=== PATIENT | male | born 1955 | race Caucasian/White ===

== ENCOUNTER 2023-05-06 09:48 | Outpatient (RCR) | payer OTHER, SELFPAY | END 2023-05-06 23:59 | disposition home or self-care (01) | LOC: RPT 09:48 | PROVIDERS: ATTENDING PHYSICIAN Urology; PRIMARYCARE PHYSICIAN Nurse Practitioner Adult Health | DX: C61 Malignant neoplasm of prostate (principal); N39.3 Stress incontinence (female) (male); Z73.6 Limitation of activities due to disability; M62.81 Muscle weakness (generalized); R27.8 Other lack of coordination | CPT/HCPCS: 97162; 97530 ==

== ENCOUNTER 2023-06-20 14:15 | Inpatient (IN) | payer OTHER, SELFPAY ==
[2023-05-02 08:32] LABS: Hemoglobin 17.7 g/dL (13.0-18.0); Mean Corpuscular Volume 88.1 fL (80.0-94.0); Mean Platelet Volume 9.5 fL (7.4-10.4); Platelet Count 276 10^3/uL (130-400); Red Cell Dist. Width 16.1 % (11.5-14.5); White Blood Cell Count 8.6 10^3/uL (4.8-10.8)
[2023-05-02 08:49] LABS: INR 0.97; PT 13.1 Sec (11.4-14.6)
[2023-05-02 08:50] LABS: APTT 31.3 Sec (23.4-35.0)
[2023-05-02 08:56] VITALS: BMI 19.7
[2023-05-02 09:35] LABS: Blood Urea Nitrogen 17 mg/dl (9-20); Calcium 9.1 mg/dl (8.4-10.2); Carbon Dioxide 25 mmol/L (22-30); Chloride 100 mmol/L (98-107); Estimated Creatinine Clearance 85 ml/min; Glucose 96 mg/dl (70-99); Potassium 4.7 mmol/L (3.5-5.1); Sodium 135 mmol/L (135-145); eGFR > 60.00
[2023-06-20] VITALS (12 sets, daily range): BP systolic 91–155; BP diastolic 55–77; BMI 19.7
--- NOTE | 2023-06-20 07:30 | PTCARENOTE ---
The OR took the patient before IVF were scanned. IVF hung. Will monitor patient.
[2023-06-20] MEDS: NORMOSOL-R 1000 IV ×2 (07:45→13:42)
[2023-06-20 13:43] LABS: Hematocrit 45.3 % (39.0-52.0); Hemoglobin 15.7 g/dL (13.0-18.0)
[2023-06-20] MEDS: ANCEF 10 IV (13:54)
[2023-06-20 14:01] LABS: Blood Urea Nitrogen 20 mg/dl (9-20); Carbon Dioxide 25 mmol/L (22-30); Chloride 106 mmol/L (98-107); Estimated Creatinine Clearance 74 ml/min; Glucose 145 mg/dl (70-99); Potassium 4.6 mmol/L (3.5-5.1); Sodium 135 mmol/L (135-145); eGFR > 60.00
--- NOTE | 2023-06-20 14:31 | PTCARENOTE ---
Pt arrived to 2S in bed. Full assessment completed. IVF infusing per order. Abdominal lap sites C/D/I, dermabonded and NAYELI. Cleaning catheter clean and intact draining blood tinged urine. Pt verbalized understanding of bedrest until 1800 and to call
for assistance. Bed locked and in the lowest position, safety maintained.
[2023-06-20] MEDS: TORADOL 15 MG IV ×2 (17:25→23:58)
[2023-06-20] MEDS: LOVENOX 40 MG SC (17:25)
[2023-06-20] MEDS: AFRIN NASAL SPRAY 1 SPRAYS NASAL (19:43)
[2023-06-20] MEDS: SENOKOT 8.59999999999999964 MG PO (19:43)
[2023-06-20] MEDS: SYMBICORT 80/4.5 MCG INHALER 2 PUFF INH (20:55)
[2023-06-20] MEDS: FLUSH (NSS) 2 FLUSH IV (23:59)
[2023-06-21 03:00] VITALS: BP 107/60
[2023-06-21] MEDS: PERCOCET 5/325 1 TABLET PO (03:59)
[2023-06-21] MEDS: DUONEB 3 ML INH ×3 (04:30→19:58)
[2023-06-21] MEDS: FLUSH (NSS) 2 FLUSH IV ×2 (04:56→05:40)
[2023-06-21] MEDS: MORPHINE SULFATE 4 MG IV ×2 (04:56→08:22)
[2023-06-21] MEDS: DILAUDID 0.5 MG IV (05:39)
[2023-06-21] MEDS: MYLICON 80 MG PO (05:39)
[2023-06-21 06:22] LABS: Hematocrit 38.1 % (39.0-52.0); Hemoglobin 13.4 g/dL (13.0-18.0); Mean Corp Hgb Conc. 35.2 g/dL (33.0-37.0); Mean Corpuscular Hgb 31.4 pg (27.0-31.0); Mean Corpuscular Volume 89.2 fL (80.0-94.0); Mean Platelet Volume 9.6 fL (7.4-10.4); Platelet Count 201 10^3/uL (130-400); Red Blood Cell Count 4.27 10^6/uL (4.70-6.10); Red Cell Dist. Width 15.9 % (11.5-14.5); White Blood Cell Count 15.7 10^3/uL (4.8-10.8)
[2023-06-21] MEDS: TORADOL IV (06:33)
--- NOTE | 2023-06-21 06:42 | PTCARENOTE ---
Starting around 0340 pt. called stating he was having trouble taking deep breaths d/t abd pain and felt SOB with o2 sat ~90% on 4L NC, as well as feeling the need to cough but unable to d/t pain. PO Percocet tried and [place] [employer]PERVISOR [employer] contacted for a
breathing tx as pt. did sound coarse upon auscultation at time of event. Following breathing tx and pain biomedical repair technician around 5 pt. had escalating pain d/t coughing, still felt SOB, and using accessory muscles/grunting in an attempt to take deep
breaths. IV Morphine tried @0456 with some reduction in pain but states increasingly worsening SOB. [place] [employer]PER[employer] contacted, stat Dilaudid and simethicone ordered. Checked in with pt. @0620 and stated he felt comfortable enough to try to sleep, breathing
even and nonlabored breathing on RA, sat 94%. At time of writing pt. is sleeping comfortably. Will continue to monitor.
[2023-06-21 07:00] LABS: Blood Urea Nitrogen 21 mg/dl (9-20); Calcium 8.1 mg/dl (8.4-10.2); Carbon Dioxide 23 mmol/L (22-30); Chloride 104 mmol/L (98-107); Estimated Creatinine Clearance 99 ml/min; Glucose 101 mg/dl (70-99); Potassium 3.3 mmol/L (3.5-5.1); Sodium 136 mmol/L (135-145); eGFR > 60.00
[2023-06-21] MEDS: SYMBICORT 80/4.5 MCG INHALER 2 PUFF INH ×2 (07:28→19:53)
[2023-06-21] MEDS: SPIRIVA RESPIMAT 2.5 MCG 2 PUFF INH (07:29)
[2023-06-21 07:40] VITALS: BP 97/57
[2023-06-21] MEDS: KCL 20 MEQ PO (08:14)
[2023-06-21] MEDS: LIPITOR 10 MG PO (08:15)
[2023-06-21] MEDS: DESYREL 50 MG PO (08:15)
[2023-06-21] MEDS: TORADOL 15 MG IV ×2 (08:15→15:50)
[2023-06-21] MEDS: AFRIN NASAL SPRAY 1 SPRAYS NASAL ×2 (08:18→20:49)
[2023-06-21] MEDS: SENOKOT 8.59999999999999964 MG PO ×2 (08:18→20:49)
--- NOTE | 2023-06-21 08:43 | W.PN.URO.CBU ---
Today's Communication / Plan
-
Pain control
Trend O2 sats
out of bed
IS
Assessment / Plan
-
67M s/p radical prostatectomy for prostate cancer
- Increase pain control regimen
- Continue O2 as needed - significant COPD at baseline
- Incentive spirometry
- Out of bed to chair, ambulate
- Will continue IVF 2 bags today until taking better PO
- Replaced potassium
- Discharge likely tomorrow
Diagnosis
-
Date of Service: June 21, 2023
-
Patient Diagnosis:Prostate cancer
Post Op Day: 1 s/p radical prostatectomy
Subjective
-
Significant abdominal pain overnight
Breathing somewhat limited by pain on inhale
No appetite this AM
Objective
-
Vital Signs
Temp Pulse Resp BP Pulse Ox
98.4 F 92 16 97/57 89
06/21/23 07:40 06/21/23 07:40 06/21/23 07:40 06/21/23 07:40 06/21/23 07:40
Intake and Output
06/20/23 06/21/23 06/22/23
06:59 06:59 06:59
Intake Total 947 / 947
Output Total 1330 / 1330
Balance -383 / -383
Intake:
Oral fluids 500 / 500
IV fluids (Total) 447 / 447
Norm 75 / 75
Normosol-R 1,000 ml @ 125 mls/ 72 / 72
hr IV .Q8H MADELEINE Rx#:[id number]
Output:
Urine, Cleaning 1330 / 1330
Laboratory Results
06/21/23 05:33
06/21/23 05:33
Physical Exam
-
General - well developed, well nourished, moderate pain
Chest - clear bilaterally
Abdomen - soft, appropriately tender, no guarding
Cleaning in place, clear urine
Skin - warm & dry with no rash
Neuro - AOx3, no motor deficits
Extremities - no clubbing, no cyanosis, no edema
Incision - clean, dry
Dressing - clean, dry, intact
[2023-06-21] MEDS: NSS 1000 IV ×2 (10:39→18:00)
[2023-06-21 11:10] VITALS: BP 132/71
--- NOTE | 2023-06-21 11:47 | CM ---
Patient seen bedside with , initial assessment completed. Patient reports he resides with his in a multiple story home. Patient denies DME and ambulates independently, report he does have a walker in the attic. reports they have a
hospital bed on the first floor, denies VN or SNF. Patient confirms PCP Dr. Alicia Stewart, pharmacy [facility]. Patient agreeable to [facility] referral for yates services. CM spoke with Denisse from [facility], aware of referral. CM will continue to follow
for discharge planning needs.
Plan; home with [facility] pending acceptance.
[2023-06-21 15:19] VITALS: BP 123/61
[2023-06-21] MEDS: PERCOCET 5/325 2 TABLET PO (15:51)
[2023-06-21] MEDS: LOVENOX 40 MG SC (15:52)
--- NOTE | 2023-06-21 15:53 | VNURNOTE ---
Home Health Liaison met with patient at 1530 to discuss [facility] nurse visits, schedule and homebound status. Patient is agreeable and understands that visits at home will be 2-3 x per week to assess and teach medical management and catheter care.
[facility] brochure provided with contact information. Patient is aware that [facility] will contact him for start of care in 1-2 days after discharge from .
[facility] referral completed in [facility].
[2023-06-21 23:40] VITALS: BP 120/65
[2023-06-22] MEDS: TORADOL 15 MG IV (00:06)
[2023-06-22] MEDS: PERCOCET 5/325 2 TABLET PO ×2 (05:14→09:34)
--- NOTE | 2023-06-22 05:30 | PTCARENOTE ---
Pt awake at this time, anxious reporting that he is having the same difficulty he has had the last 24hrs not able to take a deep breath and pain in is middle lung area. Pt given supplemental O@ via nasal canula but refuse to put in his nose and
places in his mouth. Pt on 4L O2 @ 98% HR 83. Pt provided PRN pain medication. Pt had same difficulty previous morning and had relief with pain medication and ambulating. Pt reports he has not has a BM in 2 days and feels he may go later today. Pt
in bed at this time with call julian with in reach
--- NOTE | 2023-06-22 06:16 | PTCARENOTE ---
Pt reports pain is 2/10 at this time VSS O2 left for for comfort encourage IS @ bedside
[2023-06-22 06:52] LABS: Hematocrit 34.6 % (39.0-52.0); Hemoglobin 12.3 g/dL (13.0-18.0); Mean Corp Hgb Conc. 35.5 g/dL (33.0-37.0); Mean Corpuscular Hgb 31.1 pg (27.0-31.0); Mean Corpuscular Volume 87.4 fL (80.0-94.0); Mean Platelet Volume 9.5 fL (7.4-10.4); Platelet Count 169 10^3/uL (130-400); Red Blood Cell Count 3.96 10^6/uL (4.70-6.10); Red Cell Dist. Width 15.7 % (11.5-14.5); White Blood Cell Count 11.6 10^3/uL (4.8-10.8)
[2023-06-22 07:24] LABS: Blood Urea Nitrogen 12 mg/dl (9-20); Calcium 8.1 mg/dl (8.4-10.2); Carbon Dioxide 23 mmol/L (22-30); Chloride 106 mmol/L (98-107); Estimated Creatinine Clearance 99 ml/min; Glucose 113 mg/dl (70-99); Potassium 3.9 mmol/L (3.5-5.1); Sodium 134 mmol/L (135-145); eGFR > 60.00
--- NOTE | 2023-06-22 08:16 | W.PN.URO.CBU ---
Today's Communication / Plan
-
check imaging
pulm consult
Assessment / Plan
-
67M s/p radical prostatectomy for prostate cancer
post op abd pain and SOB- intermittent
pt's abd exam is generally benign
yates functional- good UO and stable cr level
labs all ok
has been on lovenox since OR
sub crepitus not necessarily unexpected given thin pt and robotic surgery-insuflation
to check ct/cxr
pulm consult
follow closely
Diagnosis
-
Date of Service: June 22, 2023
-
Patient Diagnosis:Prostate cancer
Post Op Day: 2 s/p radical prostatectomy
Subjective
-
pt has continued to have intermittent bouts of severe upper abd pain that cuase sig SOB
after admin of percocet and pain resolution- feels fine
no continuous abd pain/sob or CP
reports + flatus
good UO/cr normal/cath functional
wbc and hgb stable
Objective
-
Vital Signs
Temp Pulse Resp BP Pulse Ox
98.2 F 93 20 120/65 93
06/21/23 23:40 06/21/23 23:40 06/21/23 23:40 06/21/23 23:40 06/21/23 23:40
Intake and Output
06/21/23 06/22/23 06/23/23
06:59 06:59 06:59
Intake Total 947 / 947 1720 / 1720
Output Total 1330 / 1330 2325 / 2325
Balance -383 / -383 -605 / -605
Intake:
Oral fluids 500 / 500 720 / 720
IV fluids (Total) 447 / 447 1000 / 1000
Norm 75 / 75
Normosol-R 1,000 ml @ 125 mls/
hr IV .Q8H MADELEINE Rx#:[id number]
Output:
Urine, Yates 1330 / 1330 2325 / 2325
Laboratory Results
06/22/23 06:39
06/22/23 06:39
Review of Systems
-
Constitutional: Fatigue
Respiratory: Trouble Breathing
Cardiac: No Symptoms
Abdomen/GI: Abdominal Pain
: No Symptoms
Physical Exam
-
General - mild discomfort
Abdomen - soft, + sub q crepitus but no rebound or gaurding or sig tenderness
Genitalia - normal- yates in place
Skin - warm & dry with no rash
Neuro - AOx3, no motor deficits
Extremities - no clubbing, no cyanosis, no edema- no cords or homans sign
Incision - clean, dry
[2023-06-22 08:20] VITALS: BP 117/67
[2023-06-22] MEDS: SPIRIVA RESPIMAT 2.5 MCG 2 PUFF INH (09:05)
[2023-06-22] MEDS: SYMBICORT 80/4.5 MCG INHALER 2 PUFF INH ×2 (09:05→20:09)
[2023-06-22] MEDS: LIPITOR 10 MG PO (09:28)
[2023-06-22] MEDS: AFRIN NASAL SPRAY 1 SPRAYS NASAL ×2 (09:28→20:53)
[2023-06-22] MEDS: SENOKOT 8.59999999999999964 MG PO ×2 (09:28→20:52)
[2023-06-22] MEDS: DESYREL 50 MG PO (09:28)
--- NOTE | 2023-06-22 10:32 | W.PN.UPDATE ---
Update Note
Progress Note Update
re-examined pt and at bedside
reviewed imaging- ct/cxr- sub air and intra-peritoneal air- espc under diaphrams- at this juncture expected/ mild ileus/ some expected pelvic hematoma/ no evid of bowel injury or urine leak/ mild consolidation of lung bases
plan
UOOB/incent spir
back diet down to clears
naprosyn
nicotine patch
await pulm input
[2023-06-22] MEDS: NICODERM TRANSDERMAL 21 MG TRANSDERM (12:12)
[2023-06-22] MEDS: NAPROSYN 500 MG PO ×2 (12:13→20:52)
--- NOTE | 2023-06-22 13:11 | CON.PUL ---
Consultation
Consultation Request
Date/Time Consultation Requested: 06/22/2023 - 0816
Date/Time Consultation Performed: 06/22/2023 - 1302
Requesting Provider: Dr. Mims
Performing Provider: Dr. Carter
Reason for Consultation: SOB
Medical History
-
Chief Complaint: Elective prostatectomy
History of Present Illness:
67-year-old male active tobacco smoker with a past med history of prostate adenocarcinoma who follows with urology who is here for prostatectomy. Patient has significant erectile dysfunction. He was counseled on surgery versus radiation treatment
options however he has decided to proceed with surgical treatment. He underwent radical prostatectomy on 06/20/2023. Since his operation he has been having increased shortness of breath with worsening hypoxia. He is now saturating 92-93% on room
air. CXR obtained showing postprocedural subdiaphragmatic air with subcutaneous emphysema. There are also hazy opacities with subsegmental atelectasis in the medial lower lobes. Due to his hypoxia, pulmonary service now consulted for additional
recommendations.
Of note, patient follows with Dr. Rollins in our office with last visit on 06/13/2023. He was noted to have worsening shortness of breath at that time suspected to have starting of an acute exacerbation of COPD. He was prescribed a course of
prednisone x 5 days and given a trelegy 200mcg sample, and told that if symptoms do not improve to start the prednisone. He does continue to smoke and has not tried nicotine patches. There was talks of starting Chantix. Last spirometry from November
2022 showed an FEV1/FVC of 48 with an FEV1 of 67% predicted, FVC 104% predicted. There was no bronchodilator response.
When I saw the pt he felt better today - at bedside. HE said that he filled the prednisone Rx that he was given by Dr. Rollins last office visit. He is using his IS. It is helping and so is the flutter valve get hsi phlegm out. He denies CP,
[place], f/c.
PMHx: Tobacco use, COPD, pulmonary nodule (6mm in RML - stable since 10/2022), hyperlipidemia, history of high-grade prostate intraepithelial neoplasia, prostate adenocarcinoma stage II
PSHx: Mohs x 2, prostate biopsy
Past Medical History
Past Medical History: Other (Above as per HPI)
Past Surgical History: Other (Above as per HPI)
Social History
Tobacco: Smoker (Current everyday smoker, 1.5 PPD since age 18, now down to 1 PPD)
Alcohol: None
Drug: None
Family History
Family History: CAD (Father: [place]), Cancer (Father: Colon cancer) and Hypertension (Mother)
Allergies / Home Medications
Allergies
Allergy/AdvReac Type Severity Reaction Status Date / Time
No Known Allergies Allergy Verified 06/20/23 07:03
Home Medications
Medication Instructions Recorded Confirmed Last Taken Type
atorvastatin 10 mg tablet 10 mg PO DAILY 06/17/23 06/20/23 06/19/23 04:00 History
cholecalciferol (vitamin D3) 125 125 mcg PO DAILY 06/17/23 06/20/23 06/19/23 04:00 History
mcg (5,000 unit) tablet (Vitamin
D3)
fluticasone fur. 100 mcg-umeclid 1 inh inhalation DAILY 06/17/23 06/20/23 06/19/23 20:00 History
62.5 mcg-vilant 25 mcg
inhalat.powder (Trelegy Ellipta)
multivit,Ca,min-iron 8 mg-folic 1 tab PO DAILY 06/17/23 06/20/23 06/18/23 History
acid 200 mcg-lycopene 600 mcg
tablet (Centrum Men)
oxymetazoline 0.05 % nasal spray 1 spray intranasal ONCE 06/17/23 06/20/23 06/19/23 20:00 History
(Afrin Sinus (oxymetazoline))
protein supplement 1 ea PO DAILY 06/17/23 06/20/23 06/18/23 History
trazodone 50 mg tablet 50 mg PO DAILY 06/17/23 06/20/23 06/18/23 History
prednisone 50 mg tablet 50 mg PO DAILY 06/20/23 06/20/23 06/19/23 08:00 History
oxycodone-acetaminophen 5 mg-325 2 tab PO Q4HPRN PRN severe pain 06/21/23 Unknown Rx
mg tablet #40 tabs
Review of Systems
-
History Source: Patient
All other systems: Negative unless noted (12 point ROS performed and is negative unless mentioned above.)
Vitals / Labs / Diagnostic Testing
Vital Signs
Temp Pulse Resp BP Pulse Ox
98.4 F 90 22 117/67 92
06/22/23 08:20 06/22/23 09:09 06/22/23 09:09 06/22/23 08:20 06/22/23 09:09
Lab Data
06/22/23 06:39
06/22/23 06:39
Diagnostic Testing:
Physical Exam
-
HEENT: Normocephalic and Anicteric
Cardiovascular: S1/S2 and Peripheral Edema (negative)
Respiratory: Wheeze (R>L in midlung field), Rales (bibasilar (L>R) improved with multiple deep breaths), Rhonchi (bibasilar (L>R)) and Non-Labored Respirations
GI: Soft and Non Distended
Neurology: Awake and Alert
Skin: Warm and Dry
General: Comfortable
Assessment
-
Assessment: 67-year-old male with a past med history of prostate adenocarcinoma who follows with urology who is here for prostatectomy. Patient has significant erectile dysfunction. He was counseled on surgery versus radiation treatment options
however he has decided to proceed with surgical treatment. He underwent radical prostatectomy on 06/20/2023. Since his operation he has been having increased shortness of breath with worsening hypoxia. He is now saturating 92-93% on room air. CXR
obtained showing postprocedural subdiaphragmatic air with subcutaneous emphysema. There are also hazy opacities with subsegmental atelectasis in the medial lower lobes. Due to his hypoxia, pulmonary service now consulted for additional
recommendations.
Chronic medical conditions STORY EDITOR: Tobacco use, COPD, hyperlipidemia, history of high-grade prostate intraepithelial neoplasia, prostate adenocarcinoma stage II
Impression:
#Acute hypoxemic respiratory failure -suspect component of hypoventilation with associated bibasilar atelectasis
#History of prostate cancer s/p radical prostatectomy -POD #2
#History of COPD (moderate severity) with centrilobular/paraseptal emphysema on trelegy with mild acute exacerbation
#Pulmonary nodule - 6mm, stable since 10/2022 - it is within the oblique fissure, hence this is likely an intra-fissural lymph node and likely benign
Plan:
- Encourage up OOB as tolerated and encourage incentive spirometer
- He is currently feeling well, but is more SOB than at baseline. Feel he is having an acute COPD exacerbation. It is difficult to decide to Tx with steroids as he will have reduced wound healing given his recent prostatectomy. Will continue
current treatment wityh Symbicort + spiriva, I will add BID Duonebs, and on day of discharge he should be DC'd on steroid taper, starting at 50mg daily x 2 days, and reduce by 10mg every 3rd day until off. And I will arrange for outpatient office
appt.
- Goal SpO2 >88%
- Continue spiriva and symbicort with prn albuterol
- Pain control
- DVT ppx
I will assure pt has outpatient follow up with Dr. Rollins
Pulmonary service will continue to follow along.
(Patient seen and evaluated n 06/22/2023).
Data:
CXR 06-22-2023: Bibasilar opacity; atelectasis versus pneumonia. Trace pleural effusion. No evidence of congestive heart failure. Postprocedural subdiaphragmatic air and subcutaneous emphysema
Outpatient [facility] data:
PFT:
������ COMMENTS:�Spirometry 06/13/23: FEV1 1.76L 59%, FVC 3.39L 85%, ratio 0.51, post FEV1 1.62L 54%, no BD response (moderate obstruction, worse than prior study)
��������Spirometry 12/05/22: FEV1 1.98L 67%, FVC 4.10L 104%, ratio 0.48. Post FEV1 1.72L 58% no BD response (moderate obstruction)
��������PFT 07/12/14: post FEV1 2.15L 60%, FVC 100%, TLC 136%, DLCO 65%.�
CARDIAC STUDIES:
������ COMMENTS:�ECHO 05/28/23: Normal biventricular size and systolic function without regional wall motion abnormality. No significant valvular disease. No significant change since the prior study of 08/01/2021..�
6 MWT:
������ COMMENTS:�6MWT 06/13/23: Total distance ambulated 1050 ft. O2 baseline 99% on room air.� Baseline HR 101. O2 jacobo 95% on room air.� No O2 was needed to maintain saturations >90%.� Dyspnea score 2/10. Max HR 114..�
[2023-06-22 15:35] VITALS: BP 120/63
[2023-06-22] MEDS: DUONEB 3 ML INH (20:09)
[2023-06-22 23:35] VITALS: BP 129/65
[2023-06-23 05:58] LABS: Hematocrit 35.4 % (39.0-52.0); Hemoglobin 12.3 g/dL (13.0-18.0); Mean Corp Hgb Conc. 34.7 g/dL (33.0-37.0); Mean Corpuscular Hgb 30.4 pg (27.0-31.0); Mean Corpuscular Volume 87.4 fL (80.0-94.0); Mean Platelet Volume 9.4 fL (7.4-10.4); Platelet Count 185 10^3/uL (130-400); Red Blood Cell Count 4.05 10^6/uL (4.70-6.10); Red Cell Dist. Width 15.6 % (11.5-14.5); White Blood Cell Count 9.2 10^3/uL (4.8-10.8)
[2023-06-23 06:29] LABS: ALT (SGPT) 26 U/L (0-50); AST (SGOT) 32 U/L (17-59); Alkaline Phosphatase 71 U/L (38-126); Blood Urea Nitrogen 11 mg/dl (9-20); Calcium 8.7 mg/dl (8.4-10.2); Carbon Dioxide 26 mmol/L (22-30); Chloride 103 mmol/L (98-107); Estimated Creatinine Clearance 99 ml/min; Glucose 106 mg/dl (70-99); Potassium 4.4 mmol/L (3.5-5.1); Sodium 135 mmol/L (135-145); Total Protein 5.2 g/dl (6.3-8.2); eGFR > 60.00
[2023-06-23 07:40] VITALS: BP 118/64
--- NOTE | 2023-06-23 08:14 | W.PN.URO.CBU ---
Today's Communication / Plan
-
advance diet
continue pulm recs for COPD
Assessment / Plan
-
67M s/p radical prostatectomy for prostate cancer
post op abd pain and SOB- intermittent
pt improved
plan to advance diet
follow pulm rec and appreciate their input
if stable over the next 24hrs- home with pulm recs of steroid taper
Diagnosis
-
Date of Service: June 23, 2023
-
Patient Diagnosis:Prostate cancer
Post Op Day: 3 s/p radical prostatectomy
Subjective
-
pt feeling much better
urine clear
labs wnl
has moved bowels
still with some SOB above baseline- but much improved and sats good
much less pain
Objective
-
Vital Signs
Temp Pulse Resp BP Pulse Ox
98.2 F 83 18 129/65 93
06/22/23 23:35 06/22/23 23:35 06/22/23 23:35 06/22/23 23:35 06/22/23 23:35
Intake and Output
06/22/23 06/23/23 06/24/23
06:59 06:59 06:59
Intake Total 1720 / 1720 3240 / 3240
Output Total 2325 / 2325 4650 / 4650
Balance -605 / -605 -1410 / -1410
Intake:
Oral fluids 720 / 720 3240 / 3240
IV fluids (Total) 1000 / 1000
Output:
Urine, Yates 2325 / 2325 4650 / 4650
Laboratory Results
06/23/23 05:27
06/23/23 05:27
Review of Systems
-
Constitutional: Fatigue
Respiratory: Trouble Breathing (improved)
Cardiac: No Symptoms
Abdomen/GI: No Symptoms
Physical Exam
-
General - no acute distress
Abdomen - soft, non-tender, still some sub q air
Genital- yates in place- urine clear
Skin - warm & dry with no rash
Neuro - AOx3, no motor deficits
Extremities - no clubbing, no cyanosis, no edema
Incision - clean, dry
[2023-06-23] MEDS: NAPROSYN 500 MG PO ×2 (08:23→19:56)
[2023-06-23] MEDS: NICODERM TRANSDERMAL 21 MG TRANSDERM (08:24)
[2023-06-23] MEDS: LIPITOR 10 MG PO (08:24)
[2023-06-23] MEDS: SENOKOT 8.59999999999999964 MG PO ×2 (08:24→19:56)
[2023-06-23] MEDS: DESYREL 50 MG PO (08:24)
[2023-06-23] MEDS: AFRIN NASAL SPRAY 1 SPRAYS NASAL (08:24)
[2023-06-23] MEDS: DUONEB INH (08:38)
[2023-06-23] MEDS: SPIRIVA RESPIMAT 2.5 MCG 2 PUFF INH (08:38)
[2023-06-23] MEDS: SYMBICORT 80/4.5 MCG INHALER 2 PUFF INH ×2 (08:38→20:10)
[2023-06-23] MEDS: VENTOLIN NEBULES 2.5 MG INH ×2 (08:38→20:10)
--- NOTE | 2023-06-23 12:18 | W.PN.PUL3 ---
Today's Communication / Plan
-
Triple inhaler therapy + nebulized albuterol
Mucolytics
IS
Encourage up OOB as tolerated
Prednisone taper to start on day of discharge
Assessment
-
Assessment: 67-year-old male with a past med history of prostate adenocarcinoma who follows with urology who is here for prostatectomy. Patient has significant erectile dysfunction. He was counseled on surgery versus radiation treatment options
however he has decided to proceed with surgical treatment. He underwent radical prostatectomy on 06/20/2023. Since his operation he has been having increased shortness of breath with worsening hypoxia. He is now saturating 92-93% on room air. CXR
obtained showing postprocedural subdiaphragmatic air with subcutaneous emphysema. There are also hazy opacities with subsegmental atelectasis in the medial lower lobes. Due to his hypoxia, pulmonary service now consulted for additional
recommendations.
Chronic medical conditions OUTSIDE LABORER: Tobacco use, COPD, hyperlipidemia, history of high-grade prostate intraepithelial neoplasia, prostate adenocarcinoma stage II
Impression:
#Acute hypoxemic respiratory failure -suspect component of hypoventilation with associated bibasilar atelectasis
#History of prostate cancer s/p radical prostatectomy - POD #3
#History of COPD (moderate severity) with centrilobular/paraseptal emphysema on trelegy with mild acute exacerbation
#Pulmonary nodule - 6mm, stable since 10/2022 - it is within the oblique fissure, hence this is likely an intra-fissural lymph node and likely benign
Plan:
- Encourage to get up OOB as tolerated and encourage incentive spirometer 10x per hour for at least 4 hrs a day
- Pulmonary toilet with mucinex and flutter valve
- He is currently feeling well, says his breathing is back to his baseline. Still think he should get discharged home with prednisone taper, starting at 50mg daily x 2 days, and reduce by 10mg every 3rd day until off.
- Continue current treatment with Symbicort + spiriva and nebulized albuterol BID
- Goal SpO2 >88%
- Pain control
- DVT ppx
I will assure pt has outpatient follow up with Dr. Rollins within the next few weeks (his next appt is 09/18/2023 as of now)
Pulmonary service will continue to follow along.
(Patient was seen and evaluated on 06/23/2023).
Data:
CXR 06-22-2023: Bibasilar opacity; atelectasis versus pneumonia. Trace pleural effusion. No evidence of congestive heart failure. Postprocedural subdiaphragmatic air and subcutaneous emphysema
Outpatient [facility]MA data:
PFT:
������ COMMENTS:�Spirometry 06/13/23: FEV1 1.76L 59%, FVC 3.39L 85%, ratio 0.51, post FEV1 1.62L 54%, no BD response (moderate obstruction, worse than prior study)
��������Spirometry 12/05/22: FEV1 1.98L 67%, FVC 4.10L 104%, ratio 0.48. Post FEV1 1.72L 58% no BD response (moderate obstruction)
��������PFT 07/12/14: post FEV1 2.15L 60%, FVC 100%, TLC 136%, DLCO 65%.�
CARDIAC STUDIES:
������ COMMENTS:�ECHO 05/28/23: Normal biventricular size and systolic function without regional wall motion abnormality. No significant valvular disease. No significant change since the prior study of 08/01/2021..�
6 MWT:
������ COMMENTS:�6MWT 06/13/23: Total distance ambulated 1050 ft. O2 baseline 99% on room air.� Baseline HR 101. O2 jacobo 95% on room air.� No O2 was needed to maintain saturations >90%.� Dyspnea score 2/10. Max HR 114..�
Subjective Data
-
Date of Service:
Date of Service: June 23, 2023
Chief Complaint: Pulmonary Follow Up
Subjective:
Seen this afternoon. He feels good. Breathing is back to his baseline. He is on room air breathing comfortably. Denies CP, [place], abd pain, N/V/f/c.
Review of Systems
General: Other (neg unless mentioned above)
Objective Data
Data Reviewed
Vital Signs / I&O / Oxygen:
Vital Signs
Temp Pulse Resp BP Pulse Ox
98.0 F 90 16 118/64 95
06/23/23 07:40 06/23/23 08:42 06/23/23 08:42 06/23/23 07:40 06/23/23 08:42
Intake and Output
06/22/23 06/23/23 06/24/23
06:59 06:59 06:59
Intake Total 1720 / 1720 3240 / 3240
Output Total 2325 / 2325 4650 / 4650
Balance -605 / -605 -1410 / -1410
SaO2 95
Nasal Cannula flow liters per 3
minute
Physical Exam
General: Respiratory Distress (neg), Comfortable and Chills (negative)
HEENT: Normocephalic and Anicteric
Cardiovascular: S1-S2 and Peripheral Edema (negative)
Respiratory: Wheeze (negative), Crackles (negative), Rhonchi (negative), Non-Labored Respirations and Other (reduced BS at bases)
GI: Soft, Non Distended and Non Tender
Neurology: Awake and Alert
Skin: Warm and Dry
Labs/Micro/Reports
Lab Data
06/23/23 05:27
06/23/23 05:27
[2023-06-23 15:35] VITALS: BP 109/72
[2023-06-23] MEDS: TYLENOL 650 MG PO (19:56)
[2023-06-23] MEDS: AFRIN NASAL SPRAY 30 SPRAYS NASAL (20:00)
[2023-06-23 23:16] VITALS: BP 119/59
[2023-06-24 06:42] LABS: Hematocrit 36.2 % (39.0-52.0); Hemoglobin 12.7 g/dL (13.0-18.0); Mean Corp Hgb Conc. 35.1 g/dL (33.0-37.0); Mean Corpuscular Hgb 30.8 pg (27.0-31.0); Mean Corpuscular Volume 87.7 fL (80.0-94.0); Mean Platelet Volume 9.4 fL (7.4-10.4); Platelet Count 225 10^3/uL (130-400); Red Blood Cell Count 4.13 10^6/uL (4.70-6.10); Red Cell Dist. Width 15.4 % (11.5-14.5); White Blood Cell Count 8.7 10^3/uL (4.8-10.8)
--- NOTE | 2023-06-24 06:52 | W.PN.UPDATE ---
Update Note
Progress Note Update
pt looks great
no pain or SOB yesterday
eating and having regular bowel movements
urine clear
reviewed discharge instructions
will try and hold on steroids for now
discharge home
--- NOTE | 2023-06-24 06:53 | W.DS.TRANS ---
DC Summary - Hat Mender
-
Discharge Instructions:
Sleep Apnea Risk Intermediate
Discharge Diagnosis/Procedures Prostate cancer
Robotic radical prostatectomy
Diet No restrictions
Activity No strenuous activity
Additional Activity avoid lifting and straining for 3-4 weeks
Driving Restrictions no driving while on narcotic pain meds
Wound Care gently rinse incisions in the showed, dont scrub
or pick off glue
Instructions:
Stand-Alone Forms:
Changes to Home Medications: No
Discharge Medications:
DC Medications w/original date entered in [facility]
atorvastatin 10 mg tablet 10 mg PO DAILY 06/17/23
cholecalciferol (vitamin D3) 125 mcg (5,000 unit) tablet (Vitamin D3) 125 mcg PO DAILY 06/17/23
fluticasone fur. 100 mcg-umeclid 62.5 mcg-vilant 25 mcg inhalat.powder (Trelegy Ellipta) 1 inh inhalation DAILY 06/17/23
multivit,Ca,min-iron 8 mg-folic acid 200 mcg-lycopene 600 mcg tablet (Centrum Men) 1 tab PO DAILY 06/17/23
oxymetazoline 0.05 % nasal spray (Afrin Sinus (oxymetazoline)) 1 spray intranasal ONCE 06/17/23
protein supplement 1 ea PO DAILY 06/17/23
trazodone 50 mg tablet 50 mg PO DAILY 06/17/23
prednisone 50 mg tablet 50 mg PO DAILY 06/20/23
oxycodone-acetaminophen 5 mg-325 mg tablet 2 tab PO Q4HPRN PRN severe pain #40 tabs 06/21/23
Home Medication Changes
Pending Results: No
[2023-06-24 07:13] LABS: Blood Urea Nitrogen 16 mg/dl (9-20); Calcium 8.8 mg/dl (8.4-10.2); Carbon Dioxide 26 mmol/L (22-30); Chloride 105 mmol/L (98-107); Estimated Creatinine Clearance 99 ml/min; Glucose 94 mg/dl (70-99); Potassium 4.2 mmol/L (3.5-5.1); Sodium 135 mmol/L (135-145); eGFR > 60.00
[2023-06-24] MEDS: SYMBICORT 80/4.5 MCG INHALER 2 PUFF INH (07:37)
[2023-06-24] MEDS: VENTOLIN NEBULES 2.5 MG INH (07:37)
[2023-06-24] MEDS: SPIRIVA RESPIMAT 2.5 MCG 2 PUFF INH (07:37)
[2023-06-24 07:49] VITALS: BP 111/66
[2023-06-24] MEDS: DESYREL 50 MG PO (07:53)
[2023-06-24] MEDS: NICODERM TRANSDERMAL 21 MG TRANSDERM (07:53)
[2023-06-24] MEDS: MUCINEX 1200 MG PO (07:53)
[2023-06-24] MEDS: SENOKOT 8.59999999999999964 MG PO (07:53)
[2023-06-24] MEDS: NAPROSYN 500 MG PO (07:53)
[2023-06-24] MEDS: AFRIN NASAL SPRAY NASAL (07:54)
[2023-06-24] MEDS: LIPITOR 10 MG PO (07:54)
--- NOTE | 2023-06-24 07:58 | W.PN.PUL3 ---
Today's Communication / Plan
-
Triple inhaler therapy + nebulized albuterol --> DC on his home regimen with trelegy
Mucolytics
IS
Encourage up OOB as tolerated
Rx prednisone taper for him to use only if needed - call our office if he ends up using it.
Patient being DC'd home today. Pulmonary service will sign off. Reconsult if respiratory issues deteriorate.
Assessment
-
Assessment: 67-year-old male with a past med history of prostate adenocarcinoma who follows with urology who is here for prostatectomy. Patient has significant erectile dysfunction. He was counseled on surgery versus radiation treatment options
however he has decided to proceed with surgical treatment. He underwent radical prostatectomy on 06/20/2023. Since his operation he has been having increased shortness of breath with worsening hypoxia. He is now saturating 92-93% on room air. CXR
obtained showing postprocedural subdiaphragmatic air with subcutaneous emphysema. There are also hazy opacities with subsegmental atelectasis in the medial lower lobes. Due to his hypoxia, pulmonary service now consulted for additional
recommendations.
Chronic medical conditions [employer]: tobacco use, COPD, hyperlipidemia, history of high-grade prostate intraepithelial neoplasia, prostate adenocarcinoma stage II
Impression:
#Acute hypoxemic respiratory failure -suspect component of hypoventilation with associated bibasilar atelectasis
#History of prostate cancer s/p radical prostatectomy - POD #4
#History of COPD (moderate severity) with centrilobular/paraseptal emphysema on trelegy with mild acute exacerbation
#Pulmonary nodule - 6mm, stable since 10/2022 - it is within the oblique fissure, hence this is likely an intra-fissural lymph node and likely benign
Plan:
- Encourage to get up OOB as tolerated and encourage incentive spirometer 10x per hour for at least 4 hrs a day
- Pulmonary toilet with mucinex and flutter valve
- He is currently feeling well, says his breathing is back to his baseline. Ok to hold off on systemic steroids - perhaps we can write the Rx to his pharmacy in case patient needs it. I advised to him to call our office if he ends up using it. Rx
prednisone taper starting at 50mg daily x 2 days, and reduce by 10mg every 3rd day until off.
- Continue current treatment with Symbicort + spiriva and nebulized albuterol BID --> DC home on trelegy
- Goal SpO2 >88%
- Pain control
- DVT ppx
I will assure pt has outpatient follow up with Dr. Rollins within the next few weeks (his next appt is 09/18/2023 as of now)
Patient being discharged home this morning. Pulmonary service will now sign off. Thank you for allowing me to be involved in the care of this patient. Please reconsult if there are any additional questions/concerns, or if his respiratory status
deteriorates.
Data:
CXR 06-22-2023: Bibasilar opacity; atelectasis versus pneumonia. Trace pleural effusion. No evidence of congestive heart failure. Postprocedural subdiaphragmatic air and subcutaneous emphysema
Outpatient [facility] data:
PFT:
������ COMMENTS:�Spirometry 06/13/23: FEV1 1.76L 59%, FVC 3.39L 85%, ratio 0.51, post FEV1 1.62L 54%, no BD response (moderate obstruction, worse than prior study)
��������Spirometry 12/05/22: FEV1 1.98L 67%, FVC 4.10L 104%, ratio 0.48. Post FEV1 1.72L 58% no BD response (moderate obstruction)
��������PFT 07/12/14: post FEV1 2.15L 60%, FVC 100%, TLC 136%, DLCO 65%.�
CARDIAC STUDIES:
������ COMMENTS:�ECHO 05/28/23: Normal biventricular size and systolic function without regional wall motion abnormality. No significant valvular disease. No significant change since the prior study of 08/01/2021..�
6 MWT:
������ COMMENTS:�6MWT 06/13/23: Total distance ambulated 1050 ft. O2 baseline 99% on room air.� Baseline HR 101. O2 jacobo 95% on room air.� No O2 was needed to maintain saturations >90%.� Dyspnea score 2/10. Max HR 114..�
Subjective Data
-
Date of Service:
Date of Service: June 24, 2023
Chief Complaint: Pulmonary Follow Up
Subjective:
Patient seen today. Being prepared for discharge home. No shortness of breath. Saturating 94% on room air. No acute events reported from overnight.
Review of Systems
General: Other (Negative unless mentioned above)
Objective Data
Data Reviewed
Vital Signs / I&O / Oxygen:
Vital Signs
Temp Pulse Resp BP Pulse Ox
98.9 F 85 16 111/66 94
06/24/23 07:49 06/24/23 07:49 06/24/23 07:49 06/24/23 07:49 06/24/23 07:49
Intake and Output
06/23/23 06/24/23 06/25/23
06:59 06:59 06:59
Intake Total 3240 / 3240 1380 / 1380
Output Total 4650 / 4650 3400 / 3400
Balance -1410 / -1410 -2019 / -2019
SaO2 94
Nasal Cannula flow liters per 2
minute
Physical Exam
General: Respiratory Distress (neg), Comfortable and Chills (negative)
HEENT: Normocephalic and Anicteric
Cardiovascular: S1-S2 and Peripheral Edema (negative)
Respiratory: Clear, Wheeze (negative), Crackles (negative), Rhonchi (negative), Non-Labored Respirations and Other (reduced BS at bases)
GI: Soft, Non Distended and Non Tender
Neurology: Awake and Alert
Skin: Warm, Dry and Jaundice (neg)
Labs/Micro/Reports
Lab Data
06/24/23 05:45
06/24/23 05:45
--- NOTE | 2023-06-24 09:31 | CM ---
Reviewed the chart notes and spoke with the patient at the bedside. IMM signed and placed on chart. Patient is being discharged to home today. DH VN was ordered, but patient declines at this time. Patient feels he does not need VN. CM continues
to be available to patient/family and is monitoring medical plan for needs at discharge.
Plan: Discharge to home today. The patient's spouse will provide transportation.
== END 2023-06-24 10:15 | disposition home or self-care (01) | DRG 707 ==
LOC: EICU 14:15
PROVIDERS: Specialist; ADMITTING PHYSICIAN Urology; CONSULT PHYSICIAN Internal Medicine Critical Care Medicine; FAMILY PHYSICIAN Nurse Practitioner Adult Health
PROC: 07TC4ZZ Resection of Pelvis Lymphatic, Percutaneous Endoscopic Approach (ICD-10-PCS; 2023-06-20)
PROC: 0VT04ZZ Resection of Prostate, Percutaneous Endoscopic Approach (ICD-10-PCS; 2023-06-20)
PROC: 8E0W4CZ Robotic Assisted Procedure of Trunk Region, Percutaneous Endoscopic Approach (ICD-10-PCS; 2023-06-20)
DX: C61 Malignant neoplasm of prostate (principal); J95.821 Acute postprocedural respiratory failure; J44.1 Chronic obstructive pulmonary disease with (acute) exacerbation; J98.11 Atelectasis; F17.210 Nicotine dependence, cigarettes, uncomplicated; N52.9 Male erectile dysfunction, unspecified; R91.1 Solitary pulmonary nodule; E78.5 Hyperlipidemia, unspecified; J43.2 Centrilobular emphysema; Y83.6 Removal of other organ (partial) (total) as the cause of abnormal reaction of the patient, or of later complication, without mention of misadventure at the time of the procedure; Z79.52 Long term (current) use of systemic steroids; Z79.82 Long term (current) use of aspirin; Z79.899 Other long term (current) drug therapy
CPT/HCPCS: 55866; 38571; 88305; 88307; 88309; 36415; 71046; 74176; 80048; 80053; 85014; 85018; 85027; 85610; 85730; 86850; 86900; 86901; 93005; 94640

== ENCOUNTER 2023-08-21 15:23 | Outpatient (RCR) | payer OTHER, SELFPAY | END 2023-08-21 23:59 | disposition home or self-care (01) | LOC: RPT 15:23 | PROVIDERS: ATTENDING PHYSICIAN Urology; PRIMARYCARE PHYSICIAN Nurse Practitioner Adult Health | DX: C61 Malignant neoplasm of prostate (principal); N39.3 Stress incontinence (female) (male); M62.89 Other specified disorders of muscle; M62.81 Muscle weakness (generalized); R27.8 Other lack of coordination; Z73.6 Limitation of activities due to disability | CPT/HCPCS: 97110; 97164; 97530 ==

== ENCOUNTER 2023-09-09 09:58 | Outpatient (RCR) | payer OTHER, SELFPAY | END 2023-09-09 23:59 | disposition home or self-care (01) | LOC: RPT 09:58 | PROVIDERS: ATTENDING PHYSICIAN Urology; PRIMARYCARE PHYSICIAN Nurse Practitioner Adult Health | DX: C61 Malignant neoplasm of prostate (principal); N39.3 Stress incontinence (female) (male); M62.89 Other specified disorders of muscle; M62.81 Muscle weakness (generalized); R27.8 Other lack of coordination; Z73.6 Limitation of activities due to disability | CPT/HCPCS: 97110; 97112 ==

== ENCOUNTER 2023-10-03 18:08 | Outpatient (RCR) | payer OTHER, SELFPAY | END 2023-10-03 23:59 | disposition home or self-care (01) | LOC: RPT 18:08 | PROVIDERS: ATTENDING PHYSICIAN Urology; PRIMARYCARE PHYSICIAN Nurse Practitioner Adult Health | DX: C61 Malignant neoplasm of prostate (principal); M62.81 Muscle weakness (generalized); N39.3 Stress incontinence (female) (male); M62.89 Other specified disorders of muscle; R27.8 Other lack of coordination; Z73.6 Limitation of activities due to disability | CPT/HCPCS: 97112; 97530 ==

== ENCOUNTER → 2024-02-28 13:29 | Outpatient (REF) | payer OTHER, SELFPAY | LOC: HWRAD 13:29 | PROVIDERS: ATTENDING PHYSICIAN Internal Medicine; FAMILY PHYSICIAN Nurse Practitioner Adult Health | DX: R91.1 Solitary pulmonary nodule (principal) | CPT/HCPCS: 71250 ==

== ENCOUNTER 2024-03-09 06:11 | Day surgery (SDC) | payer OTHER, SELFPAY ==
[2024-03-04 08:56] VITALS: BMI 18.4
[2024-03-04 08:59] LABS: Hematocrit 52.1 % (39.0-52.0); Hemoglobin 17.8 g/dL (13.0-18.0); Mean Corp Hgb Conc. 34.2 g/dL (33.0-37.0); Mean Corpuscular Hgb 30.3 pg (27.0-31.0); Mean Corpuscular Volume 88.6 fL (80.0-94.0); Mean Platelet Volume 9.6 fL (7.4-10.4); Platelet Count 248 10^3/uL (130-400); Red Blood Cell Count 5.88 10^6/uL (4.70-6.10); Red Cell Dist. Width 16.5 % (11.5-14.5); White Blood Cell Count 9.8 10^3/uL (4.8-10.8)
[2024-03-04 09:08] LABS: INR 0.99; PT 13.1 Sec (11.4-14.6)
[2024-03-04 09:09] LABS: APTT 32.8 Sec (23.4-35.0)
[2024-03-04 10:10] LABS: Blood Urea Nitrogen 16 mg/dl (9-20); Calcium 9.6 mg/dl (8.4-10.2); Carbon Dioxide 25 mmol/L (22-30); Chloride 105 mmol/L (98-107); Estimated Creatinine Clearance 81 ml/min; Glucose 93 mg/dl (70-99); Potassium 4.5 mmol/L (3.5-5.1); Sodium 145 mmol/L (135-145); eGFR > 60.00
[2024-03-09] VITALS (8 sets, daily range): BP systolic 104–120; BP diastolic 60–78; BMI 18.4; BMI 17.4
== END 2024-03-09 11:34 | disposition home or self-care (01) ==
LOC: SDS 06:11
PROVIDERS: ATTENDING PHYSICIAN Internal Medicine Critical Care Medicine; FAMILY PHYSICIAN Nurse Practitioner Adult Health
DX: R91.8 Other nonspecific abnormal finding of lung field (principal); R59.0 Localized enlarged lymph nodes
CPT/HCPCS: 31652; 31645; 31625; 31623; 31624; 31627; 31654; 88172; 88173; 88305; 88312; 36415; 71045; 76000; 80048; 85027; 85610; 85730; 87070; 87102; 87116; 87205; 88112; 88333; 88334; 93005; 94640; C1887

== ENCOUNTER 2024-06-05 10:57 | Emergency (ER) | payer OTHER, SELFPAY ==
[2024-06-05 11:10] VITALS: BP 148/86
--- NOTE | 2024-06-05 11:13 | ED.GENMED ---
ED Provider Triage
<Olvin Gardner PA-C - Last Filed: 06/05/24 11:14>
-
Patient seen by provider in Triage?: Seen in Triage
68-year-old male with history of COPD presents with 1 weeks worth of shortness of breath worsening chest tightness. He denies a fever. He denies chest discomfort or pain. He has been using his rescue inhaler as his normal inhaler without any
relief. No known sick contacts.
Not hypoxic at triage. Will start with labs COVID and flu testing as well as chest x-ray.
Patient seen by healthcare provider at triage but warrants further assess
History of Present Illness
<Olvin Gardner PA-C - Last Filed: 06/05/24 11:14>
General
Chief Complaint: Breathing Problem
Time Seen by Provider: 06/05/24 15:05
<Юлия Ibarra NP - Last Filed: 06/05/24 22:06>
General
Source: patient
Exam Limitations: none
Nursing documentation reviewed up to this point in time: agreed with
History of Present Illness
History of Present Illness:
Patient to ED with complaint of increasing cough, increasing SOB. Symptoms started approx 1 week ago. States he has been using his PRN inhalers (unable to recall name) more frequently this week but notes no improvement. Denies fever chills,
cp/pressure, n/v/d. No sick contacts. History of COPD. No home O2. Brought self to ED for eval. Pulse ox 95%RA at rest.
Past History
<Юлия Ibarra NP - Last Filed: 06/05/24 22:06>
Past History
ED Past Medical History: COPD and Hypercholesterolemia
Review of Systems
<Юлия Ibarra NP - Last Filed: 06/05/24 22:06>
Review of Systems
Allergies reviewed?: Yes
All Other Systems: ROS reviewed and negative except as documented in HPI and ROS
Constitutional: Reports no symptoms
EENT: Reports no symptoms
Respiratory: Reports cough and trouble breathing
Cardiac: Reports no symptoms
ABD/GI: Reports no symptoms
: Reports no symptoms
Musculoskeletal: Reports no symptoms
Skin: Reports no symptoms
Neurological: Reports no symptoms
Psychiatric: Reports no symptoms
Phy Exam
<Юлия Ibarra NP - Last Filed: 06/05/24 22:06>
General Physical Exam
General Presentation: well appearing and mild distress
General age: appears stated age
General Skin: warm and dry
General Habitus: normal
General Mental: alert
Cardiovascular Exam
Cardiovascular Exam: regular rate/rhythm and no edema
Pulmonary Exam
Pulmonary Exam: chest non tender and generalized wheezing
Cough: coarse cough
Gastrointestinal Exam
Gastrointestinal Exam: non tender and soft
Musculoskeletal Exam
Musculoskeletal Exam: full ROM and neuro vasc intact
Skin Exam
Skin Exam: normal color, warm/dry and no rash
Psychiatric Exam
Psychiatric Exam: normal mood/affect
Scores
<Юлия Ibarra NP - Last Filed: 06/05/24 22:06>
Heart Failure Risk
Heart Failure Risk Score: Not Applicable
Course
<Olvin Gardner PA-C - Last Filed: 06/05/24 11:14>
Orders/Labs/Results
Orders:
Orders
06/05/24 11:12
CR Chest - 2 Views Urgent
Comment:
Reason For Exam: sob
06/05/24 11:19
COVID-19 Antigen Urgent
Source: Nasal Swab
Complete Blood Count/With Diff Urgent
Comprehensive Metabolic Panel Urgent
NT-proBNP Urgent
Influenza A+B Rapid Molecular Urgent
ANGEL Source: Nasal Swab
Specimen Description:
06/05/24 15:14
Dexamethasone Pf [Decadron] 10 mg PO NOW STA
Ipratropium/Albuterol Sulfate [Duoneb] 3 ml INH R NOW STA
Abnormal Lab Results
06/05/24
11:19
RDW 15.5 H %
(11.5-14.5)
Absolute Neuts (auto) 7.0 H 10^3/uL
(1.4-6.5)
Absolute Monos (auto) 1.0 H 10^3/uL
(0.1-0.6)
Lymphocytes % 14.8 L %
(20.5-51.1)
Monocytes % 10.8 H %
(1.7-9.3)
Creatinine 0.6 L mg/dL
(0.7-1.3)
06/05/24 11:19
06/05/24 11:19
Vital Signs
Initial and Last Documented VS:
Initial Vital Signs
Temp Pulse Resp BP Pulse Ox
98.1 F 102 16 148/86 93
06/05/24 11:10 06/05/24 11:10 06/05/24 11:10 06/05/24 11:10 06/05/24 11:10
Last Documented Vital Signs
Temp Pulse Resp BP Pulse Ox
98.1 F 83 20 132/70 93
06/05/24 11:10 06/05/24 16:00 06/05/24 16:00 06/05/24 16:00 06/05/24 16:00
<Юлия Ibarra NP - Last Filed: 06/05/24 22:06>
Orders/Labs/Results
Orders:
Orders
06/05/24 11:12
CR Chest - 2 Views Urgent
Comment:
Reason For Exam: sob
06/05/24 11:19
COVID-19 Antigen Urgent
Source: Nasal Swab
Complete Blood Count/With Diff Urgent
Comprehensive Metabolic Panel Urgent
NT-proBNP Urgent
Influenza A+B Rapid Molecular Urgent
ANGEL Source: Nasal Swab
Specimen Description:
06/05/24 15:14
Dexamethasone Pf [Decadron] 10 mg PO NOW STA
Ipratropium/Albuterol Sulfate [Duoneb] 3 ml INH R NOW STA
Abnormal Lab Results
06/05/24
11:19
RDW 15.5 H %
(11.5-14.5)
Absolute Neuts (auto) 7.0 H 10^3/uL
(1.4-6.5)
Absolute Monos (auto) 1.0 H 10^3/uL
(0.1-0.6)
Lymphocytes % 14.8 L %
(20.5-51.1)
Monocytes % 10.8 H %
(1.7-9.3)
Creatinine 0.6 L mg/dL
(0.7-1.3)
06/05/24 11:19
06/05/24 11:19
Vital Signs
Initial and Last Documented VS:
Initial Vital Signs
Temp Pulse Resp BP Pulse Ox
98.1 F 102 16 148/86 93
06/05/24 11:10 06/05/24 11:10 06/05/24 11:10 06/05/24 11:10 06/05/24 11:10
Last Documented Vital Signs
Temp Pulse Resp BP Pulse Ox
98.1 F 83 20 132/70 93
06/05/24 11:10 06/05/24 16:00 06/05/24 16:00 06/05/24 16:00 06/05/24 16:00
<Юлия Ibarra NP - Last Filed: 06/05/24 22:06>
*Radiology
Radiology exam reviewed: radiology read reviewed
*Critical Care Note
Total Time (30-74mins, 75-104mins- exclusive of procedures): Not Applicable
<Юлия Ibarra NP - Last Filed: 06/05/24 22:06>
Update Note
Update Note:
Patient to ED with increasing SOB x 1 week. No fever/chills. Reports wrosening cough. Labs reviewed, no concerning findings. wbc normal, BNP normal. CXR no evidence of pneumonia. +COPD. COVID and influenza neg. Generalized wheezing on exam.
PUlse ox 95% RA at rest. WIll give Decadron 10mg now along with duoneb, check walking pulse ox.
Improved after duoneb. Wheezing resolved. Pulse ox increased to 96% with ambulaton. He reports having a nebulizer at home. WIll give rx for QID neb treatments. COntinue Prednisone taper at home and follow up with pulmonology. He remains awake
and alert, nontoxic appearing. He is discharged home. Given instructions on s/s to return to ED and he is agreeable to plan.
ED Attending Note
<Olvin Gardner PA-C - Last Filed: 06/05/24 11:14>
-
Portions of this chart may have been created with voice recognition software.� Occasional wrong word or��sound alike� substitutions may have occurred due to the inherent limitations of voice recognition software.
Discharge Plan
Departure
Patient Disposition: Home (Routine Discharge)
Date of Disposition: 06/05/24
Time of Disposition: 16:27
Patient with high blood pressure during this ER visit?: No
Condition: Good
Covid-19: Not Applicable
Discharge Problem:
Acute bronchitis
Instructions: Acute Bronchitis, Adult (DC)
Prescriptions:
New
prednisone 10 mg Tablet
See Rx Instructions .ROUTE .COMPLEX Qty: 45 0RF
Rx Instructions:
Take By Mouth:
50 mg daily x3 days, 40 mg daily x3 days,
30 mg daily x3 days, 20 mg daily x3 days,
10 mg daily x3 days
albuterol sulfate 2.5 mg /3 mL (0.083 %) solution for nebulization
2.5 mg inhalation QID Qty: 90 0RF
No Action
trazodone 50 mg Tablet
50 mg PO HS
atorvastatin 10 mg Tablet
10 mg PO DAILY
oxymetazoline [Afrin Sinus (oxymetazoline)] 0.05 % [place],Non-Aerosol
1 spray INTRANASAL HS
cholecalciferol (vitamin D3) [Vitamin D3] 125 mcg (5,000 unit) Tablet
125 mcg PO DAILY
Centrum Men 8 mg iron- 200 mcg-600 mcg Tablet
1 tab PO DAILY
Trelegy Ellipta 200-62.5-25 mcg Blister With Device
1 inh INHALATION DAILY
rifampin 300 mg Capsule
600 mg PO MOWEFR
Rx Instructions:
TAKING MED W/DINNER
ethambutol 400 mg Tablet
1,200 mg PO MOWEFR
Rx Instructions:
TAKING MED W/DINNER
protein Powder
1 ea PO DAILY
Rx Instructions:
30G daily
azithromycin 500 mg Tablet
500 mg PO MOWEFR
Rx Instructions:
TAKING MED W/DINNER
albuterol sulfate 90 mcg/actuation Hfa Aerosol Inhaler
2 puff INHALATION Q6H PRN (Reason: SOB)
Referrals:
Alicia Stewart CRNP [Family Provider] - Follow up in 2-3 days
Activity Restrictions/Additional Instructions:
Return to the emergency department immediately for any changes in/worsening of your symptoms.
Interventions
Interventions:
*Risk Screen - Suicide Last Done: 06/05/24 11:10
*General Assessment Last Done: 06/05/24 11:10
*Neglect/Abuse Screening Last Done: 06/05/24 11:10
ED- Fall Risk Assessment Last Done: 06/05/24 15:28
*Nursing Disposition Last Done: 06/05/24 17:03
ED- Cardiac Assessment Last Done: 06/05/24 15:28
ED- Pulmonary Assessment Last Done: 06/05/24 15:28
Discharge Date and Time
Discharge Date/Time: 06/05/24 17:04
Print Language: FAROESE
[2024-06-05 11:30] LABS: % Basophils 0.4 % (0-2); % Eosinophils 0.7 % (0-6); % Immature Granulocytes 0.4 % (0-0.5); % Lymphocytes 14.8 % (20.5-51.1); % Monocytes 10.8 % (1.7-9.3); % Neutrophils 72.9 % (42.2-75.2); Absolute Eosinophils 0.1 10^3/uL (0-0.7); Absolute Lymphocytes 1.4 10^3/uL (1.2-3.4); Hematocrit 49.7 % (39.0-52.0); Hemoglobin 16.8 g/dL (13.0-18.0); Mean Corp Hgb Conc. 33.8 g/dL (33.0-37.0); Mean Corpuscular Hgb 29.8 pg (27.0-31.0); Mean Corpuscular Volume 88.3 fL (80.0-94.0); Mean Platelet Volume 9.5 fL (7.4-10.4); Nucleated Red Blood Cells % 0 % (-); Platelet Count 226 10^3/uL (130-400); Red Blood Cell Count 5.63 10^6/uL (4.70-6.10); Red Cell Dist. Width 15.5 % (11.5-14.5); White Blood Cell Count 9.6 10^3/uL (4.8-10.8)
[2024-06-05 11:50] LABS: COVID-19 Antigen Negative (Negative)
[2024-06-05 11:51] LABS: NT-proBNP 46.9 pg/ml
[2024-06-05 11:53] LABS: ALT (SGPT) 29 U/L (0-50); AST (SGOT) 31 U/L (17-59); Albumin 4.6 g/dl (3.5-5.0); Alkaline Phosphatase 102 U/L (38-126); Blood Urea Nitrogen 17 mg/dl (9-20); Calcium 9.3 mg/dl (8.4-10.2); Carbon Dioxide 27 mmol/L (22-30); Chloride 100 mmol/L (98-107); Glucose 95 mg/dl (70-99); Potassium 4.7 mmol/L (3.5-5.1); Sodium 137 mmol/L (135-145); Total Bilirubin 0.5 mg/dl (0.2-1.3); Total Protein 7.2 g/dl (6.3-8.2); eGFR > 60.00
[2024-06-05] MEDS: DUONEB 3 ML INH (15:19)
[2024-06-05] MEDS: DECADRON 10 MG PO (15:19)
[2024-06-05 16:00] VITALS: BP 132/70
== END 2024-06-05 17:04 | disposition home or self-care (01) ==
LOC: EMR 10:57
PROVIDERS: Physician Assistant; EMERGENCY PHYSICIAN Emergency Medicine; FAMILY PHYSICIAN Nurse Practitioner Adult Health
DX: J44.0 Chronic obstructive pulmonary disease with (acute) lower respiratory infection (principal); J20.9 Acute bronchitis, unspecified; E78.00 Pure hypercholesterolemia, unspecified
CPT/HCPCS: 94640; 99284; 71046; 80053; 83880; 85025; 87502; 87811

== ENCOUNTER 2024-06-29 06:23 | Emergency (ER) | payer OTHER, SELFPAY ==
[2024-06-29 06:24] VITALS: BP 150/94
[2024-06-29 07:09] LABS: Hematocrit 51.8 % (39.0-52.0); Hemoglobin 17.5 g/dL (13.0-18.0); Mean Corp Hgb Conc. 33.8 g/dL (33.0-37.0); Mean Corpuscular Hgb 29.9 pg (27.0-31.0); Mean Corpuscular Volume 88.5 fL (80.0-94.0); Mean Platelet Volume 9.7 fL (7.4-10.4); Platelet Count 257 10^3/uL (130-400); Red Blood Cell Count 5.85 10^6/uL (4.70-6.10); Red Cell Dist. Width 15.3 % (11.5-14.5); White Blood Cell Count 6.7 10^3/uL (4.8-10.8)
[2024-06-29 07:20] LABS: ALT (SGPT) 56 U/L (0-50); AST (SGOT) 48 U/L (17-59); Albumin 4.5 g/dl (3.5-5.0); Alkaline Phosphatase 108 U/L (38-126); Blood Urea Nitrogen 19 mg/dl (9-20); Calcium 9.2 mg/dl (8.4-10.2); Carbon Dioxide 28 mmol/L (22-30); Chloride 103 mmol/L (98-107); Glucose 106 mg/dl (70-99); Potassium 4.6 mmol/L (3.5-5.1); Sodium 140 mmol/L (135-145); Total Bilirubin 0.8 mg/dl (0.2-1.3); Total Protein 7.2 g/dl (6.3-8.2); eGFR > 60.00
[2024-06-29 08:17] LABS: % Basophils 0.4 % (0-2); % Eosinophils 1.6 % (0-6); % Immature Granulocytes 2.1 % (0-0.5); % Lymphocytes 21.1 % (20.5-51.1); % Monocytes 8.4 % (1.7-9.3); % Neutrophils 66.4 % (42.2-75.2); Absolute Eosinophils 0.1 10^3/uL (0-0.7); Absolute Immature Granulocytes 0.1 10^3/uL (0-0.05); Absolute Lymphocytes 1.4 10^3/uL (1.2-3.4); Absolute Monocytes 0.6 10^3/uL (0.1-0.6); Absolute Neutrophils 4.4 10^3/uL (1.4-6.5); Nucleated Red Blood Cells % 0 % (-)
--- NOTE | 2024-06-29 08:37 | ED.GENMED ---
History of Present Illness
General
Chief Complaint: Breathing Problem
Source: patient and records
Time Seen by Provider: 06/29/24 08:24
History of Present Illness
History of Present Illness:
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
breath since he recently was diagnosed with the flu and self diagnosed bronchitis over the last 2 weeks. Patient took a home test for the flu a little over 1 week ago and reports that it came back positive. States that while he has improved
symptoms still notes a cough productive of a intermittent yellowish sputum and states that he has had significantly worsening exertional dyspnea to the point where he has a hard time walking 20 yards without feeling short of breath. Patient notes
that he is not on any oxygen at baseline despite his COPD diagnosis. Pulse ox is normally around 94 to 95% on room air and states that it has been dropping as low as 90% at times. He denies any chest pain, palpitations, diaphoresis, lower
extremity edema, current fevers or any other concerns.
Past History
Past History
ED Past Medical History: Cancer, COPD and Hypercholesterolemia
ED Past Surgical History: Orthopedic and Urological
Social History
Tobacco: Smoker
Alcohol: None
Drug: None
Personal:
Living: with family
Employment: Employed
Review of Systems
Review of Systems
All Other Systems: ROS reviewed and negative except as documented in HPI and ROS
Phy Exam
Physical Exam
Physical Exam:
GENERAL: Alert , in no apparent distress, thin
HEAD: Normocephalic atraumatic
EYE: conjunctiva clear
NECK: Supple
ENT: o/p clr, mmm.
CARDIAC: Regular rate and rhythm
LUNGS: Scattered rhonchi, and expiratory phase wheeze within the bibasilar lung wallis, diminished at the right base, pulse ox between 93 and 95% on room air
NEUROLOGICAL: Alert and oriented
SKIN: Warm and dry, skin intact.
MUSCULOSKELETAL: well perfused. no edema
PSYCH: Normal and appropriate interaction.
Scores
Heart Failure Risk
Heart Failure Risk Score: Not Applicable
Heart Score for Chest Pain Patients
STEMI patient?: Not applicable
Withdrawal Assessment of Alcohol
Withdrawal Assessment Completed?: Not applicable
Course
Orders/Labs/Results
Orders:
Orders
06/29/24 06:29
Chest [CR Chest - 2 Views ] Urgent
Comment:
Reason For Exam: SOB
06/29/24 06:45
Complete Blood Count/With Diff Urgent
Comprehensive Metabolic Panel Urgent
06/29/24 08:33
Ipratropium/Albuterol Sulfate [Duoneb] 3 ml INH R NOW ONE
MethylPREDNISolone PF [Solu-Medrol Pf] 60 mg IV NOW STA
06/29/24 08:46
Electrocardiogram (*1) Urgent
Reason for Study: Shortness of Breath
EKG- Treatment ONCE
06/29/24 09:05
Procalcitonin Urgent
PCT Algorithmm Indication: Respiratory
Abnormal Lab Results
06/29/24
06:45
RDW 15.3 H %
(11.5-14.5)
Abs Immat Gran (auto) 0.1 H 10^3/uL
(0-0.05)
Immature Gran % 2.1 H %
(0-0.5)
Glucose 106 H mg/dl
(70-99)
ALT 56 H U/L
(0-50)
06/29/24 06:45
06/29/24 06:45
Vital Signs
Initial and Last Documented VS:
Initial Vital Signs
Temp Pulse Resp BP Pulse Ox
97.8 F 112 28 150/94 92
06/29/24 06:24 06/29/24 06:24 06/29/24 06:24 06/29/24 06:24 06/29/24 06:24
Last Documented Vital Signs
Temp Pulse Resp BP Pulse Ox
97.8 F 82 15 120/72 90
06/29/24 06:24 06/29/24 11:45 06/29/24 11:45 06/29/24 11:00 06/29/24 12:00
MDM/Problems Addressed
Differential Diagnosis Includes:
COPD exacerbation, bronchitis, pneumonia, less concern for pulmonary emboli although considered given his hypoxia and smoking history, less concern for CHF or cardiac cause
MDM/Problems Addressed:
68-year-old male presenting to the emergency department for evaluation of shortness of breath in the setting of recent viral upper respiratory illness. History of COPD which is monitored by pulmonology. He actually has an appointment with his
composition mixer tomorrow but was concerned due to the worsening hypoxia. Pulse ox between 92 and 95% on room air here. He does have some faint wheezing and rhonchorous lung sounds. I suspect COPD exacerbation secondary to viral URI is most likely
diagnosis. Will treat here with DuoNeb and Solu-Medrol. Labs initiated. Disposition pending
Chronic conditions affecting care: COPD
Acute Exacerbation and/or Progression of Chronic Illness: COPD
*Radiology
Radiology exam reviewed: preliminary read by ED provider (Questionable right lower lung infiltrate) and radiology read reviewed (No evidence for pneumonia)
*Pulse Oximetry
Patient hypoxic: no
*[employer] Interpretation
Rate: normal
Rhythm: sinus
*Critical Care Note
Total Time (30-74mins, 75-104mins- exclusive of procedures): Not Applicable
Patient Management
Escalation/DeEscalation of care consider admission/obs:
Patient's procalcitonin negative making the possible infiltrate seen on x-ray likely viral related to his recent flu diagnosis. Patient was able to ambulate in the ER, pulse ox to drop around 90 to 92% but did not appear overtly dyspneic or in
significant discomfort. I suspect COPD exacerbation is likely related to recent viral illness. Will treat with prednisone taper. Patient has an appointment tomorrow with his composition mixer. At this time I do think it is reasonable for patient to
be discharged home to follow-up with his composition mixer tomorrow. Patient aware of return precautions to the ER.
ED Attending Note
-
Portions of this chart may have been created with voice recognition software.� Occasional wrong word or��sound alike� substitutions may have occurred due to the inherent limitations of voice recognition software.
Discharge Plan
Departure
Patient Disposition: Home (Routine Discharge)
Date of Disposition: 06/29/24
Time of Disposition: 12:04
Patient with high blood pressure during this ER visit?: Yes
Discharge Problem:
Acute exacerbation of chronic obstructive pulmonary disease
Instructions: Chronic obstructive pulmonary disease (COPD) - Discharge instructions
Prescriptions:
New
prednisone 10 mg Tablet
See Rx Instructions .ROUTE .COMPLEX Qty: 30 0RF
Rx Instructions:
Take By Mouth:
40 mg daily x3 days, 30 mg daily x3 days,
20 mg daily x3 days, 10 mg daily x3 days.
No Action
trazodone 50 mg Tablet
50 mg PO HS
atorvastatin 10 mg Tablet
10 mg PO DAILY
oxymetazoline [Afrin Sinus (oxymetazoline)] 0.05 % [place],Non-Aerosol
1 spray INTRANASAL HS
cholecalciferol (vitamin D3) [Vitamin D3] 125 mcg (5,000 unit) Tablet
125 mcg PO DAILY
Centrum Men 8 mg iron- 200 mcg-600 mcg Tablet
1 tab PO DAILY
Trelegy Ellipta 200-62.5-25 mcg Blister With Device
1 inh INHALATION DAILY
rifampin 300 mg Capsule
600 mg PO MOWEFR
Rx Instructions:
TAKING MED W/DINNER
ethambutol 400 mg Tablet
1,200 mg PO MOWEFR
Rx Instructions:
TAKING MED W/DINNER
protein Powder
1 ea PO DAILY
Rx Instructions:
30G daily
azithromycin 500 mg Tablet
500 mg PO MOWEFR
Rx Instructions:
TAKING MED W/DINNER
albuterol sulfate 90 mcg/actuation Hfa Aerosol Inhaler
2 puff INHALATION Q6H PRN (Reason: SOB)
prednisone 10 mg Tablet
See Rx Instructions .ROUTE .COMPLEX Qty: 45 0RF
Rx Instructions:
Take By Mouth:
50 mg daily x3 days, 40 mg daily x3 days,
30 mg daily x3 days, 20 mg daily x3 days,
10 mg daily x3 days
albuterol sulfate 2.5 mg /3 mL (0.083 %) solution for nebulization
2.5 mg inhalation QID Qty: 90 0RF
Referrals:
Alicia Stewart CRNP [Family Provider] -
Interventions
Interventions:
*Risk Screen - Suicide Last Done: 06/29/24 06:24
*General Assessment Last Done: 06/29/24 09:12
*Neglect/Abuse Screening Last Done: 06/29/24 06:24
*ED COVID-19 Vaccine History Last Done: 06/29/24 09:12
*Nursing Disposition Last Done: 06/29/24 12:13
ED- Cardiac Assessment Last Done: 06/29/24 09:12
ED- Pulmonary Assessment Last Done: 06/29/24 09:12
Discharge Date and Time
Discharge Date/Time: 06/29/24 12:14
Print Language: [place]
[2024-06-29 09:00] VITALS: BP 134/75
[2024-06-29] MEDS: SOLU-MEDROL PF 60 MG IV (09:02)
[2024-06-29] MEDS: DUONEB 3 ML INH (09:03)
[2024-06-29 09:12] VITALS: BMI 18.7
[2024-06-29 09:46] LABS: Procalcitonin < 0.05 ng/ml (0.0-0.25)
[2024-06-29 10:00] VITALS: BP 109/74
[2024-06-29 11:00] VITALS: BP 120/72
== END 2024-06-29 12:14 | disposition home or self-care (01) ==
LOC: EMR 06:23
PROVIDERS: Physician Assistant Medical; EMERGENCY PHYSICIAN Emergency Medicine; FAMILY PHYSICIAN Nurse Practitioner Adult Health
DX: J44.1 Chronic obstructive pulmonary disease with (acute) exacerbation (principal); E78.00 Pure hypercholesterolemia, unspecified; F17.200 Nicotine dependence, unspecified, uncomplicated; Z85.46 Personal history of malignant neoplasm of prostate
CPT/HCPCS: 99285; 96374; 94640; 71046; 80053; 84145; 85025; 93005; 96372; 99284

== ENCOUNTER → 2024-10-05 08:25 | Outpatient (REF) | payer OTHER, SELFPAY | LOC: HWRAD 08:25 | PROVIDERS: ATTENDING PHYSICIAN Internal Medicine; FAMILY PHYSICIAN Nurse Practitioner Adult Health | DX: R91.8 Other nonspecific abnormal finding of lung field (principal) | CPT/HCPCS: 71250 ==

== ENCOUNTER 2025-03-23 12:31 | Emergency (ER) | payer OTHER, SELFPAY ==
[2025-03-23 12:49] VITALS: BP 155/86
[2025-03-23 13:23] LABS: Hematocrit 47.7 % (39.0-52.0); Hemoglobin 16.6 g/dL (13.0-18.0); Mean Corp Hgb Conc. 34.8 g/dL (33.0-37.0); Mean Corpuscular Volume 88.7 fL (80.0-94.0); Nucleated Red Blood Cells % 0 % (-); Platelet Count 205 10^3/uL (130-400); Red Cell Dist. Width 14.8 % (11.5-14.5)
[2025-03-23 13:45] LABS: ALT (SGPT) 46 U/L (0-50); AST (SGOT) 38 U/L (17-59); Albumin 4.5 g/dl (3.5-5.0); Alkaline Phosphatase 106 U/L (38-126); Blood Urea Nitrogen 18 mg/dl (9-20); Calcium 9.0 mg/dl (8.4-10.2); Carbon Dioxide 27 mmol/L (22-30); Chloride 105 mmol/L (98-107); Glucose 86 mg/dl (70-99); Potassium 4.1 mmol/L (3.5-5.1); Sodium 140 mmol/L (135-145); Total Protein 7.1 g/dl (6.3-8.2); eGFR > 60.00
[2025-03-23 13:49] LABS: Troponin I < 0.012 ng/ml
[2025-03-23 15:31] LABS: COVID-19 Antigen Negative (Negative)
[2025-03-23 16:38] VITALS: BMI 18.8
--- NOTE | 2025-03-23 16:38 | ED.GENMED ---
History of Present Illness
General
Chief Complaint: Breathing Problem
Time Seen by Provider: 03/23/25 16:33
Nursing documentation reviewed up to this point in time: agreed with
History of Present Illness
History of Present Illness:
69-year-old male presents to the ER for evaluation of worsening shortness of breath and increasing sputum production over the last 3 to 4 days. He denies fever. He reports feeling winded with ambulation. He denies any recent antibiotic usage. He
does have a history of COPD and has been using his nebulizer at home along with his Anoro inhaler.
Past History
Past History
ED Past Medical History: Cancer, COPD and Hypercholesterolemia
ED Past Surgical History: Orthopedic and Urological
Social History
Tobacco: Smoker
Alcohol: None
Drug: None
Personal:
Living: with family
Employment: Employed
Review of Systems
Review of Systems
Allergies reviewed?: Yes
Phy Exam
Physical Exam
Physical Exam:
Patient is awake, alert, thin, ruborous complexion, positive tachypnea with increased work of breathing, head is NCAT, PERRL, EOMI mucous membranes moist, conjunctiva pink, heart regular rate and rhythm without murmurs or ectopy, lungs are clear to
auscultation without wheezes rales or rhonchi, no JVD, abdomen is soft and nontender on palpation, extremities without edema, GCS is 15
Scores
Heart Failure Risk
Heart Failure Risk Score: Not Applicable
Course
Orders/Labs/Results
Orders:
Orders
03/23/25 12:41
Electrocardiogram (*1) Urgent
Reason for Study: Other
Other Reason for Exam: Respiratory Distress
EKG- Treatment ONCE
03/23/25 12:55
Chest [CR Chest - 2 Views ] Urgent
Comment:
Reason For Exam: sob
03/23/25 13:11
Complete Blood Count/With Diff Urgent
Comprehensive Metabolic Panel Urgent
NT-proBNP Urgent
Troponin I Urgent
03/23/25 14:56
COVID-19 Antigen Urgent
Source: Nasal Swab
03/23/25 16:36
Albuterol Sulfate [Ventolin Nebules] 7.5 mg INH R NOW STA
Ipratropium Nebs [Atrovent Nebules] 1 mg INH R NOW STA
03/23/25 16:38
Prednisone [Deltasone] 60 mg PO NOW STA
03/23/25 17:22
Influenza A+B Rapid Molecular Urgent
ANGEL Source: Nasal Swab
Specimen Description:
03/23/25 17:53
Azithromycin [Zithromax] 500 mg PO NOW STA
Abnormal Lab Results
03/23/25
13:11
RDW 14.8 H %
(11.5-14.5)
Monocytes % 9.6 H %
(1.7-9.3)
Creatinine 0.6 L mg/dL
(0.7-1.3)
03/23/25 13:11
03/23/25 13:11
CBC and chemistry are very reassuring. Troponin negative. COVID-negative
Vital Signs
Initial and Last Documented VS:
Initial Vital Signs
Temp Pulse Resp BP Pulse Ox
97.8 F 96 24 155/86 92
03/23/25 12:49 03/23/25 12:49 03/23/25 12:49 03/23/25 12:49 03/23/25 12:49
Last Documented Vital Signs
Temp Pulse Resp BP Pulse Ox
97.8 F 96 24 155/86 92
03/23/25 12:49 03/23/25 12:49 03/23/25 12:49 03/23/25 12:49 03/23/25 16:41
MDM/Problems Addressed
Differential Diagnosis Includes:
Differential diagnosis considered but not limited to exacerbation of COPD, COVID, flu, pneumonia along with other etiologies considered
Chronic conditions affecting care:
COPD, ongoing tobacco use
*Radiology
Radiology exam reviewed: radiology read reviewed (Chest x-ray clear)
*Pulse Oximetry
SaO2: 92
Oxygen Mode of Delivery: Room air
Patient hypoxic: no
Comment: Patient was tachypneic after ambulating back to the room however pulse ox was 96% on room air, normal
*EKG
Interpreted by ED Provider?: Yes (I independently interpreted twelve-lead EKG showing normal sinus rhythm, rate 79, normal axis, normal intervals, low voltage QRS, no ST elevations, this is a borderline EKG without evidence for acute ischemia, no
change compared to prior from 06/29/2024)
*[facility] General Superintendent Interpretation
Rate: normal (I independently viewed and interpreted rhythm strip showing normal sinus rhythm, no ectopy)
*Critical Care Note
Total Time (30-74mins, 75-104mins- exclusive of procedures): Not Applicable
Update Note
Update Note:
I reviewed all test results with patient, however given work of breathing, will give hour-long breathing treatment with steroids. Will reassess. Patient agrees with plan at current
1745: Patient feeling much better after hour-long breathing treatment. On reevaluation, lungs are clear. He no longer has increased work of breathing. I did discuss with patient plan for discharge home which he feels comfortable. He has not had
any hypoxia here in the ER. I discussed with him medication usage at home including steroids and antibiotics. He expressed understanding of full discharge instructions and has no questions at the current time.
1800: Patient is on chronic every other day azithromycin. I have canceled my prescription. Given patient's white blood count is normal and he is not hypoxic, will focus on steroids only. Patient advised follow-up with his surgical services coordinator. I also
spoke with patient with regards to his dyspnea on exertion. Patient is winded with activity. I offered patient admission purely for further evaluation of his dyspnea and symptom management. Patient is declining admission and would prefer to go
home to trial steroids. He had no questions prior to leaving the department.
ED Attending Note
-
Portions of this chart may have been created with voice recognition software.� Occasional wrong word or��sound alike� substitutions may have occurred due to the inherent limitations of voice recognition software.
Discharge Plan
Departure
Patient Disposition: Home (Routine Discharge)
Date of Disposition: 03/23/25
Time of Disposition: 17:54
Patient with high blood pressure during this ER visit?: No
Discharge Problem:
Acute exacerbation of chronic obstructive pulmonary disease
Instructions: COPD exacerbation in adults - ED (DC)
Prescriptions:
New
prednisone 20 mg tablet
40 mg PO DAILY Qty: 8 0RF
No Action
trazodone 50 mg Tablet
50 mg PO HS
atorvastatin 10 mg Tablet
10 mg PO DAILY
oxymetazoline [Afrin Sinus (oxymetazoline)] 0.05 % [place],Non-Aerosol
1 spray INTRANASAL HS
cholecalciferol (vitamin D3) [Vitamin D3] 125 mcg (5,000 unit) Tablet
125 mcg PO DAILY
Centrum Men 8 mg iron- 200 mcg-600 mcg Tablet
1 tab PO DAILY
Trelegy Ellipta 200-62.5-25 mcg Blister With Device
1 inh INHALATION DAILY
rifampin 300 mg Capsule
600 mg PO MOWEFR
Rx Instructions:
TAKING MED W/DINNER
ethambutol 400 mg Tablet
1,200 mg PO MOWEFR
Rx Instructions:
TAKING MED W/DINNER
protein Powder
1 ea PO DAILY
Rx Instructions:
30G daily
azithromycin 500 mg Tablet
500 mg PO MOWEFR
Rx Instructions:
TAKING MED W/DINNER
albuterol sulfate 90 mcg/actuation Hfa Aerosol Inhaler
2 puff INHALATION Q6H PRN (Reason: SOB)
prednisone 10 mg Tablet
See Rx Instructions .ROUTE .COMPLEX Qty: 45 0RF
Rx Instructions:
Take By Mouth:
50 mg daily x3 days, 40 mg daily x3 days,
30 mg daily x3 days, 20 mg daily x3 days,
10 mg daily x3 days
albuterol sulfate 2.5 mg /3 mL (0.083 %) solution for nebulization
2.5 mg inhalation QID Qty: 90 0RF
prednisone 10 mg Tablet
See Rx Instructions .ROUTE .COMPLEX Qty: 30 0RF
Rx Instructions:
Take By Mouth:
40 mg daily x3 days, 30 mg daily x3 days,
20 mg daily x3 days, 10 mg daily x3 days.
Referrals:
Alicia Stewart CRNP [Family Provider, General]
Activity Restrictions/Additional Instructions:
Please complete course of antibiotics and steroids as prescribed. Continue using your albuterol nebulizer at home every 4 hours for the next 24 hours follow-up with your physician in 3 days for reevaluation. Please return to the ER for any concerns
Interventions
Interventions:
*Risk Screen - Suicide Last Done: 03/23/25 12:49
*General Assessment Last Done: 03/23/25 16:38
*Neglect/Abuse Screening Last Done: 03/23/25 12:49
*ED- Fall Risk Assessment Last Done: 03/23/25 16:38
*ED COVID-19 Vaccine History Last Done: 03/23/25 16:38
*ED Influenza Vaccine History Last Done: 03/23/25 16:38
*Nursing Disposition Last Done: 03/23/25 18:27
ED- Cardiac Assessment Last Done: 03/23/25 16:38
ED- Pulmonary Assessment Last Done: 03/23/25 16:38
Discharge Date and Time
Discharge Date/Time: 03/23/25 18:28
Print Language: [place]ET[place]
[2025-03-23] MEDS: DELTASONE 60 MG PO (16:47)
[2025-03-23] MEDS: VENTOLIN NEBULES 7.5 MG INH (16:48)
[2025-03-23] MEDS: ATROVENT NEBULES 1 MG INH (16:48)
[2025-03-23] MEDS: ZITHROMAX 500 MG PO (18:07)
== END 2025-03-23 18:28 | disposition home or self-care (01) ==
LOC: EMR 12:31
PROVIDERS: Emergency Medicine; EMERGENCY PHYSICIAN Emergency Medicine; FAMILY PHYSICIAN Nurse Practitioner Adult Health
DX: J44.1 Chronic obstructive pulmonary disease with (acute) exacerbation (principal); E78.00 Pure hypercholesterolemia, unspecified; F17.200 Nicotine dependence, unspecified, uncomplicated
CPT/HCPCS: 99284; 94640; 71046; 80053; 83880; 84484; 85025; 87502; 87811; 93005

== ENCOUNTER → 2025-05-03 08:18 | Outpatient (REF) | payer OTHER, SELFPAY | LOC: HWRAD 08:18 | PROVIDERS: ATTENDING PHYSICIAN Nurse Practitioner Adult Health; FAMILY PHYSICIAN Nurse Practitioner Adult Health | DX: A31.0 Pulmonary mycobacterial infection (principal); R91.8 Other nonspecific abnormal finding of lung field; R91.1 Solitary pulmonary nodule | CPT/HCPCS: 71250 ==